=== PATIENT | female | born 1985 | race Caucasian/White ===

== ENCOUNTER 2017-10-13 07:54 | Inpatient (IN) | payer BC ==
[~2017-10-13] VITALS: Ht 149.9 cm; Wt 71.7 kg
[2017-10-13] MEDS: LACTATED RINGERS 1000ML 1,000 ML IV PRN ×2 (08:40→10:35)
[2017-10-13] MEDS: OXYTOCIN-LR 20 UNITS/1000 ML 1,000 ML IV SCH ×2 (09:00→23:49)
[2017-10-13] MEDS ORDERED: AMPICILLIN 2GM+NS 100ML 100 ML IV SCH (09:00)
[2017-10-13 09:01] LABS: APPEARANCE,URINE Cloudy (CLEAR); BILIRUBIN,URINE Negative (NEGATIVE); COLOR,URINE Yellow (YELLOW); GLUCOSE, URINE (UA) Negative (NEGATIVE); KETONES,URINE Negative (NEGATIVE); LEUKOCYTE ESTERASE ,URINE Moderate (NEGATIVE); NITRATE,URINE Negative (NEGATIVE); OCCULT BLOOD,URINE Negative (NEGATIVE); PROTEIN,URINE Negative (NEGATIVE)
[2017-10-13 09:03] LABS: HEMATOCRIT 34.2 % (36-48); MEAN CORPUSCULAR HEMOGLOBIN 31.8 pg (27.0-33.0); MEAN CORPUSCULAR HGB CONC 35.2 g/dL (32.0-36.0); MEAN CORPUSCULAR VOLUME 90.4 fL (79-99); PLATELET COUNT (AUTO) 90 K/uL (130-400); RED BLOOD CELL COUNT(AUTO) 3.78 MIL/uL (4.00-5.50); RED CELL DISTRIBUTION WIDTH 15.3 % (11.0-15.5); WHITE BLOOD COUNT (AUTO) 6.9 K/uL (4.8-10.8)
[2017-10-13 09:12] LABS: BACTERIA,URINE Moderate /HPF (None Seen); SQUAMOUS EPITHELIAL CELL,UR Moderate /LPF (0-2)
[2017-10-13] MEDS ORDERED: EPHEDRINE SULFATE 50 MG/ML AMPULE IVP PRN ×2 (09:15→20:30)
[2017-10-13] MEDS ORDERED: LACTATED RINGERS 500 ML 500 ML IV PRN (09:15)
[2017-10-13] MEDS ORDERED: NALOXONE HCL 0.4 MG/1 ML ML IV PRN (09:15)
[2017-10-13] MEDS ORDERED: LACTATED RINGERS 1000ML 1,000 ML IV ONE ×2 (10:27→20:03)
[2017-10-13] MEDS ORDERED: OXYTOCIN 10 USP UNITS/ML ONE ×2 (10:27→20:03)
[2017-10-13] MEDS ORDERED: OXYTOCIN 10 USP UNITS/ML 20 UNIT in LACTATED RINGERS 1000ML 1,000 ML IV SCH (10:30)
[2017-10-13] MEDS: AMPICILLIN 1GM+NS 50ML 50 ML IV SCH ×2 (13:05→21:00)
[2017-10-13] MEDS ORDERED: CEFAZOLIN SODIUM 1 GM VIAL ONE (16:46)
[2017-10-13] MEDS ORDERED: CEFAZOLIN SODIUM 1 GM VIAL IVP PRN (17:00)
[2017-10-13] MEDS ORDERED: LIDOCAINE HCL-MPF 2% 10ML AMP IJ ONE (17:15)
[2017-10-13] MEDS ORDERED: MIDAZOLAM HCL 1 MG/ML 2ML VIAL ONE (17:18)
[2017-10-13] MEDS ORDERED: FENTANYL CITRATE PF 50 MCG/1 ML 2ML VIAL ONE (17:18)
[2017-10-13] MEDS ORDERED: GLYCOPYRROLATE 0.2 MG/ML 5 ML VIAL ONE (17:40)
[2017-10-13] MEDS ORDERED: LIDOCAINE PF 2% 5ML ABBOJECT ONE (17:40)
[2017-10-13] MEDS ORDERED: SODIUM BICARB 8.4% 50ML SYRINGE ONE (17:40)
[2017-10-13] MEDS ORDERED: DEXAMETHASONE SOD PHOSPHATE 10MG/ML 1ML VIAL ONE (17:40)
[2017-10-13] MEDS ORDERED: SODIUM CHLORIDE 0.9% 10 ML VIAL ONE (17:40)
[2017-10-13] MEDS ORDERED: ONDANSETRON HCL 4 MG/2 ML VIAL ONE (17:40)
[2017-10-13] MEDS ORDERED: NEOSTIGMINE METHYLSULFATE 1MG/ML IV ONE (17:40)
[2017-10-13] MEDS ORDERED: OXYTOCIN-LR 20 UNITS/1000 ML 1,000 ML IV PRN (18:07)
[2017-10-13] MEDS ORDERED: DEXTROSE 5 %-0.45 % NACL 1,000 ML IV PRN (18:15)
[2017-10-13] MEDS ORDERED: PROMETHAZINE HCL 25 MG/ML 1ML AMPULE IM PRN ×2 (18:15→20:30)
[2017-10-13] MEDS ORDERED: SODIUM CHLORIDE 0.9% 10 ML VIAL IVP PRN (18:15)
[2017-10-13] MEDS ORDERED: MEPERIDINE-PF 75 MG/ML SYG IM PRN (18:15)
[2017-10-13] MEDS ORDERED: MEPERIDINE-PF 50 MG/ML SYG ONE (18:34)
[2017-10-13] MEDS ORDERED: MORPHINE SULFATE 2 MG/ML 1ML SYG ONE (19:56)
[2017-10-13] MEDS ORDERED: METOCLOPRAMIDE 10 MG/2 ML VIAL IVP PRN (20:30)
[2017-10-13] MEDS ORDERED: ONDANSETRON HCL 4 MG/2 ML VIAL IVP PRN ×2 (20:30)
[2017-10-13] MEDS ORDERED: DiphenhydrAMINE HCL 50 MG/ML VIAL IVP PRN (20:30)
[2017-10-13] MEDS ORDERED: ONDANSETRON HCL 4 MG/2 ML 8 MG in SODIUM CHLORIDE 0.9% 50 ML IVP NR (20:30)
[2017-10-13] MEDS ORDERED: MORPHINE SULFATE 2 MG/ML 1ML SYG IVP PRN (20:30)
[2017-10-13] MEDS ORDERED: NALOXONE HCL 0.4 MG/1 ML ML IVP PRN ×2 (20:30)
[2017-10-13] MEDS: HYDROCODONE/ACETAMINOPHEN 5/325 MG TAB PO PRN (20:35)
[2017-10-13 20:51] VITALS: BP 141/65
[2017-10-13 23:18] VITALS: BP 121/66
[2017-10-14 03:15] VITALS: BP 106/56
[2017-10-14] MEDS: HYDROCODONE/ACETAMINOPHEN 5/325 MG TAB PO PRN ×4 (03:17→21:11)
[2017-10-14] MEDS ORDERED: LANOLIN 30GM OINTMENT TP PRN ×2 (06:15→08:00)
[2017-10-14 06:29] LABS: HEMATOCRIT 29.6 % (36-48); MEAN CORPUSCULAR HEMOGLOBIN 30.3 pg (27.0-33.0); MEAN CORPUSCULAR HGB CONC 33.5 g/dL (32.0-36.0); MEAN CORPUSCULAR VOLUME 90.3 fL (79-99); NUCLEATED RED BLOOD CELLS 0.1 % (0.0-0.19); PLATELET COUNT (AUTO) 93 K/uL (130-400); RED BLOOD CELL COUNT(AUTO) 3.28 MIL/uL (4.00-5.50); RED CELL DISTRIBUTION WIDTH 15.5 % (11.0-15.5); WHITE BLOOD COUNT (AUTO) 16.3 K/uL (4.8-10.8)
[2017-10-14 07:44] VITALS: BP 103/69
[2017-10-14] MEDS ORDERED: DIPHENHYDRAMINE HCL 25 MG CAPSULE PO PRN (08:00)
[2017-10-14] MEDS ORDERED: ACETAMINOPHEN-CODEINE 300/30MG TAB PO PRN (08:00)
[2017-10-14] MEDS: DIPH,PERTUSS(ACELL),TET VAC/PF 0.5 ML VIAL IM SCH (08:33)
[2017-10-14] MEDS: DOCUSATE SODIUM 100 MG CAP PO SCH ×2 (08:33→20:31)
[2017-10-14] MEDS: SIMETHICONE 80 MG TAB.CHEW PO PRN ×4 (08:33→20:31)
[2017-10-14] MEDS: IBUPROFEN 600 MG TABLET PO PRN ×3 (08:34→22:41)
[2017-10-14 10:21] LABS: HEPATITIS Bs ANTIGEN SCREEN P Negative (Negative)
[2017-10-14 11:38] VITALS: BP 106/69
[2017-10-14 15:31] VITALS: BP 104/58
[2017-10-14 19:52] VITALS: BP 116/75
[2017-10-14] MEDS: BISACODYL 10 MG SUPP.RECT RC PRN (21:00)
[2017-10-14 23:29] VITALS: BP 105/70
[2017-10-15 02:56] VITALS: BP 107/78
[2017-10-15] MEDS: HYDROCODONE/ACETAMINOPHEN 5/325 MG TAB PO PRN ×3 (02:57→14:34)
[2017-10-15] MEDS ORDERED: FLU VACC QS2017-18 36MOS UP/PF 60 MCG/0.5 ML ML IM SCH (06:15)
[2017-10-15] MEDS: BISACODYL 10 MG SUPP.RECT RC PRN (06:26)
[2017-10-15] MEDS: IBUPROFEN 600 MG TABLET PO PRN ×2 (06:29→14:29)
[2017-10-15] MEDS: DIPH,PERTUSS(ACELL),TET VAC/PF 0.5 ML VIAL IM SCH (08:00)
[2017-10-15 08:06] VITALS: BP 108/73
[2017-10-15] MEDS: DOCUSATE SODIUM 100 MG CAP PO SCH (08:42)
[2017-10-15] MEDS: SIMETHICONE 80 MG TAB.CHEW PO PRN ×2 (08:42→14:28)
[2017-10-15 12:14] VITALS: BP 126/98
[2017-10-15] MEDS ORDERED: BISACODYL 10 MG SUPP.RECT RC SCH (12:15)
[2017-10-15] MEDS ORDERED: MAGNESIUM HYDROXIDE 30 ML/UDCUP PO SCH (12:15)
[2017-10-15 15:55] VITALS: BP 110/75
[2017-10-15] MEDS ORDERED: IRON-10 PO (15:56)
[2017-10-15] MEDS ORDERED: TYL3B PO (15:57)
== END 2017-10-15 16:55 | disposition home or self-care (01) | DRG 766 ==
LOC: LDH 07:54 → OBSVTOIN 08:52 → WSH 20:55 → UNDODISIN 10-14 13:55
PROVIDERS: ADMIT Obstetrics & Gynecology; ATTEND Obstetrics & Gynecology
PROC: 10D00Z1 Extraction of Products of Conception, Low, Open Approach (ICD-10-PCS; 2017-10-13)
PROC: 0UL70ZZ Occlusion of Bilateral Fallopian Tubes, Open Approach (ICD-10-PCS; principal; 2017-10-13 17:00)
PROC: 3E0234Z Introduction of Serum, Toxoid and Vaccine into Muscle, Percutaneous Approach (ICD-10-PCS; 2017-10-15)
DX: O62.2 Other uterine inertia (principal); D64.9 Anemia, unspecified; O99.02 Anemia complicating childbirth; Z30.2 Encounter for sterilization; Z37.0 Single live birth; Z3A.39 39 weeks gestation of pregnancy; Z23 Encounter for immunization
CPT/HCPCS: 36415; 59510; 81001; 85027; 86592; 86850; 86900; 86901; 87340; 88302; 90715; A4344; A4606; G0378; J0290; J0690; J1100; J2001; J2175; J2250; J2405; J2590; J2710; J3010; J3490; J7120; Q2038